=== PATIENT | female | born 1990 ===

== ENCOUNTER 2016-09-14 19:54 | Emergency (ER) | payer BC, OTHER ==
[2016-09-14 20:15] VITALS: BP 124/74
--- NOTE | 2016-09-14 20:27 | UC ---
HPI Febrile Illness - HPI Summary HPI Summary: 25 YEAR OLD PRESENTS WITH COMPLAINS OF SEVERE SORE THROAT, FEVER, CHILL AND VOMITING. - History of Current Complaint Chief Complaint: [facility]CGI Time Seen by Provider: 09/14/16 20:21 - Allergy/Home Medications Allergies/Adverse Reactions: Allergies Allergy/AdvReac Type Severity Reaction Status Date / Time ENVIRONMENTAL Allergy Severe CONGESTION, Uncoded 09/14/16 20:16 ITCHY THROAT Home Medications: Home Medications Control* 09/14/16 [History] DULoxetine DR CAP* [Cymbalta CAP*] 09/14/16 [History] Ibuprofen TAB* [Advil TAB*] 200 mg PO PRN 09/14/16 [History] Lactobacillus [Probiotic] 1 cap PO 09/14/16 [History] LevoCETirizine TAB (NF) [Xyzal TAB (NF)] 5 mg PO DAILY 09/14/16 [History Confirmed 09/14/16] hydrOXYzine HCL TAB* [Atarax 25 MG TAB*] 25 mg PO PRN 09/14/16 [History] PMH/Surg Hx/FS Hx/Imm Hx - Surgical History Surgery Procedure, Year, and Place: COLONOSCOPY/ENDOSCOPY Infectious Disease History: No Infectious Disease History: Denies: Traveled Outside the [place] in Last 30 Days - Social History Alcohol Use: Occasionally Substance Use Type: Reports: None Smoking Status (MU): Never Smoked Tobacco Review of Systems Constitutional: Fever, Chills, Fatigue Skin: Negative Eyes: Negative ENT: Sore Throat, Nasal Discharge, Sinus Congestion Respiratory: Negative Cardiovascular: Negative Gastrointestinal: Negative Genitourinary: Negative Motor: Negative Neurovascular: Negative Musculoskeletal: Negative Neurological: Negative Psychological: Negative All Other Systems Reviewed And Are Negative: Yes Physical Exam Triage Information Reviewed: Yes Vital Signs: Initial Vital Signs Temp 36.4 C 09/14/16 20:11 Pulse 135 09/14/16 20:11 Resp 16 09/14/16 20:11 BP 124/74 09/14/16 20:11 Pulse Ox 100 09/14/16 20:11 Eye Exam: Normal ENT: Positive: Pharyngeal erythema, Tonsillar swelling, Tonsillar exudate Dental Exam: Normal Neck exam: Normal Neck: Positive: 1 Respiratory Exam: Normal Cardiovascular Exam: Normal Abdominal Exam: Normal Musculoskeletal Exam: Normal Neurological Exam: Normal Psychological Exam: Normal Skin Exam: Normal Course/Dx - Diagnoses Clinic Provider Diagnoses: FEVER. PHARYNGITIS Discharge - Discharge Plan Condition: Stable Disposition: HOME Prescriptions: Amoxicillin/Clavulanate TAB* [Augmentin TAB 875*] 875 mg PO BID #20 tab Magic M W2 Mekhi/Maal/Nyst/Lido* 15 ml SWISH SPIT QID PRN #120 ml PRN Reason: Sore Throat Methylprednisolone [Medrol Dosepak 4 MG*] 4 mg PO .SEE AC INSTRUCTION #21 tab Patient Education Materials: Pharyngitis (ED) Referrals: No Primary Care Phys,NOPCP [Primary Care Provider] -
[2016-09-14] MEDS ORDERED: Amoxicillin/Clavulanate TAB* 875 MG PO ONE (20:56)
[2016-09-14] MEDS ORDERED: predniSONE TAB* 20 MG PO ONE (20:57)
== END 2016-09-14 21:15 | disposition home or self-care (01) ==
LOC: UCEAST 19:54
DX: R50.9 Fever, unspecified (principal); J02.9 Acute pharyngitis, unspecified
CPT/HCPCS: 87070; 99212; A9270-GY; G0463; J7512